=== PATIENT | female | born 1965 | race Caucasian/White ===

== ENCOUNTER → 2016-04-21 | Outpatient (CLI) | payer OTHER ==
[~2016-04-21] MED LIST: GABAPENTIN300 M1 PO; LEVOTHYROXIN0.075 M2 PO; NORCO 325 MG-101 TAB PO; SERTRALINE 100100 MG PO
--- NOTE | 2016-05-04 07:33 | RADIOLOGY REPORT PS360 ---
DIG MAMM-SCREEN [facility] W/CAD CAD Screening ORDERING PHYSICIAN : Mary Anne Mcarthur APRN PATIENT AGE: 50 years GENDER: Female COMPARISON: Previous mammograms: 02/24/2014 bilateral digital mammogram and 8-10 bilateral film screen mammogram. Also additional spot views 03/06/2014 INDICATION: Routine screening no hormones. No new complaints. Noncontributory family history. TECHNIQUE: Standard CC and MLO images were obtained. R2 CAD reviewed. FINDINGS: Moderately dense breast RIGHT BREAST: Small asymmetric areas of density previously noted the right breast appear recently stable and can be followed. Specifically a small focal area of the superior central breast on MLO view is been present since 2009 LEFT BREAST: No new areas of concern follow-up in one year IMPRESSION: No significant new areas of concern. Stable minimal asymmetry Follow up one year should be emphasized and encouraged BI-RADS CATEGORY: 2_Benign RECOMMENDED FOLLOWUP: 12M 12 MONTH FOLLOW-UP (A letter has been sent to the patient regarding results of the study.)
== END ==
LOC: RAD 15:43
DX: Z12.31 Encounter for screening mammogram for malignant neoplasm of breast (principal)
CPT/HCPCS: G0202

== ENCOUNTER 2017-01-13 08:51 | Day surgery (SDC) | payer OTHER ==
[~2017-01-13] VITALS: Ht 165.1 cm; Wt 79.4 kg
[~2017-01-13 08:51] MED LIST changes: +BROMFED DM COU118 ML PO; +ROPINIROLE HYDRO1 MG PO
[2017-01-13 09:02] VITALS: BP 135/73
[2017-01-13 09:20] VITALS: BP 135/73
[2017-01-13 09:21] VITALS: BP 156/83
--- NOTE | 2017-01-13 09:30 | Procedure Note ---
Procedure detail Date of procedure: 01/13/17 Anesthesiologist: Carlos Varner MD Complications: None Pre-procedure diagnosis: Bilateral sacroiliitis Post-procedure diagnosis: same Indications for procedure: This patient is a pleasant 51-year-old white female who we are treating for low back pain and bilateral hip pain. She does have a Lupe's test positive bilaterally. She is tender over both SI joints. We will do bilateral SI joint injections under fluoroscopy today. She does say that diclofenac does not help much. We will reevaluate her symptoms in the clinic after these injections. Procedure detail: Informed consent was obtained and the risks and benefits of the procedure were explained to the patient. The patient was taken to the procedure room and noninvasive monitors were placed including a noninvasive blood pressure cuff and pulse oximeter. The patient was placed prone on the procedure table. Both hips were cleansed using Betadine as a cleansing solution. C-arm fluoroscopy was used to view the right sacroiliac joint. The skin and subcutaneous tissues were anesthetized using lidocaine 1.5% and a 25-gauge needle. After this, a 22-gauge spinal needle was inserted under fluoroscopic guidance into the inferior aspect of the right sacroiliac joint. Omnipaque dye was injected and good spread was seen throughout the joint. After this, approximately 5 mL of bupivacaine, 0.25% and Depo-Medrol, 40 mg was incrementally injected into the right sacroiliac joint. We then moved to the left sacroiliac joint. The skin and subcutaneous tissues were anesthetized using lidocaine 1.5% and a 25-gauge needle. After this, a 22- gauge spinal needle was inserted under fluoroscopic guidance into the inferior aspect of the left sacroiliac joint. Omnipaque dye was injected and good spread was seen throughout the joint. After this, approximately 5 mL of bupivacaine, 0.25% and Depo-Medrol, 40 mg was incrementally injected into the left sacroiliac joint. The patient tolerated the procedure well with no complications. The patient was observed in the Pain Clinic and then was discharged home neurologically intact. Plan and disposition: We'll follow-up with this patient in our clinic and reassess her symptoms in 2 weeks. at [id number]
[2017-01-13 09:38] VITALS: BP 94/50
== END 2017-01-13 09:40 | disposition home or self-care (01) ==
LOC: PM 08:51
PROC: 3E0U33Z Introduction of Anti-inflammatory into Joints, Percutaneous Approach (ICD-10-PCS; principal; 2017-01-13)
PROC: 3E0U3BZ Introduction of Anesthetic Agent into Joints, Percutaneous Approach (ICD-10-PCS; 2017-01-13)
DX: M46.1 Sacroiliitis, not elsewhere classified (principal)
CPT/HCPCS: G0260; J1030; Q9966